=== PATIENT | female | born 1985 | race Caucasian/White ===

== ENCOUNTER 2017-08-17 07:48 | Emergency (ER) | payer OTHER ==
[~2017-08-17] VITALS: Ht 165.1 cm; Wt 77.0 kg
[~2017-08-17 07:48] MED LIST: CAMILA0.35 MG PO; FERGON324 MG PO; IBUPROFEN800 MG PO; PRENATAL TABLE1 EAC3 PO; PROAIR HFA8.5 GM IH; PROMETHAZINE12.5 M1 PO
[2017-08-17 08:30] LABS: HEMOGLOBIN 13.5 G/DL (11.9-15.5); MCH 33.5 PG (29.0-34.0); MCHC 35.5 G/DL (30.0-36.0); MCV 94.3 FL (83-99); PLATELET COUNT 256 K/uL (156-360); RBC DIS.WIDTH-CV 12.7 % (11.8-14.6); RBC DIS.WIDTH-SD 43.5 % (39-53); RED BLOOD COUNT 4.03 M/uL (3.80-5.20); WHITE BLOOD COUNT 9.7 K/uL (4.1-10.2)
[2017-08-17 08:38] LABS: CHLORIDE 103 mEq/L (99-109); POTASSIUM 3.9 mEq/L (3.7-5.4); SODIUM 138 mEq/L (136-147)
[2017-08-17 08:40] LABS: GLUCOSE 103 mg/dL (70-99)
[2017-08-17 08:43] LABS: CREATININE 0.7 mg/dL (0.6-1.3); GFR ESTIMATE (CALCULATED) > 59 mL/min/
[2017-08-17 08:44] LABS: UREA NITROGEN (BUN) 13 mg/dL (9-23)
[2017-08-17 08:50] LABS: APPEARANCE CLOUDY ((CLEAR)); BILIRUBIN NEGATIVE; BLOOD SMALL; COLOR YELLOW ((YELLOW)); GLUCOSE (STRIP) NEGATIVE; KETONES NEGATIVE; LEUKOCYTES LARGE; NITRITE NEGATIVE; PROTEIN (STRIP) 30; SPECIFIC GRAVITY 1.021 (1.000-1.030); UROBILINOGEN 0.2 MG/DL (0.2-1.0)
[2017-08-17 09:07] LABS: BACTERIA 2+ /HPF; EPITHELIAL CELLS 1+ /HPF; MUCUS RARE /LPF; UCUL ADDED? YES; WHITE BLOOD CELLS TNTC /HPF (0-5); WHITE CELL CASTS 0-5 /LPF
[2017-08-17 09:08] LABS: AMORPHOUS URATES CRYSTALS 1+
[2017-08-17] MEDS ORDERED: KEFLEX500 MG PO (10:00)
[2017-08-17 10:25] VITALS: BP 108/72
== END 2017-08-17 10:26 | disposition home or self-care (01) ==
LOC: EME 07:48
PROVIDERS: Nurse Practitioner Family
DX: N39.0 Urinary tract infection, site not specified (principal); F31.9 Bipolar disorder, unspecified; F17.200 Nicotine dependence, unspecified, uncomplicated
CPT/HCPCS: 80048; 81003; 85027; 87077; 87086; 87186; 99281; 99284; J1885

== ENCOUNTER 2017-08-19 13:14 | Emergency (ER) | payer OTHER ==
[~2017-08-19] VITALS: Ht 165.1 cm; Wt 77.3 kg
[~2017-08-19 13:14] MED LIST changes: +KEFLEX500 MG PO
[2017-08-19 14:14] LABS: BASOPHIL (%) 0.3 % (0-1); BASOPHIL COUNT 0.1 K/uL (0-0.1); EOSINOPHIL (%) 0.1 % (0-5); HEMATOCRIT 39.2 % (36.0-46.0); HEMOGLOBIN 13.9 G/DL (11.9-15.5); IMMATURE GRANULOCYTE (%) 0.5 % (0.0-0.7); LYMPHOCYTE (%) 7.8 % (15-42); LYMPHOCYTE COUNT 1.4 K/uL (1.0-2.8); MCHC 35.5 G/DL (30.0-36.0); MCV 93.1 FL (83-99); MONOCYTE (%) 9.1 % (3-12); MONOCYTE COUNT 1.7 K/uL (0-0.8); NEUTROPHIL (%) 82.2 % (45-76); NEUTROPHIL COUNT 15.2 K/uL (1.8-6.4); PLATELET COUNT 250 K/uL (156-360); RBC DIS.WIDTH-CV 12.7 % (11.8-14.6); RBC DIS.WIDTH-SD 43.2 % (39-53); RED BLOOD COUNT 4.21 M/uL (3.80-5.20); WHITE BLOOD COUNT 18.5 K/uL (4.1-10.2)
[2017-08-19 14:26] LABS: CHLORIDE 97 mEq/L (99-109); POTASSIUM 3.7 mEq/L (3.7-5.4); SODIUM 132 mEq/L (136-147)
[2017-08-19 14:27] LABS: GLUCOSE 117 mg/dL (70-99)
[2017-08-19 14:31] LABS: CREATININE 0.8 mg/dL (0.6-1.3); GFR ESTIMATE (CALCULATED) > 59 mL/min/
[2017-08-19 14:32] LABS: UREA NITROGEN (BUN) 9 mg/dL (9-23)
[2017-08-19 15:17] LABS: QUANTITATIVE HCG < 4.0 MIU/ML
[2017-08-19 15:32] LABS: APPEARANCE SL.HAZY ((CLEAR)); BILIRUBIN NEGATIVE; BLOOD SMALL; COLOR YELLOW ((YELLOW)); GLUCOSE (STRIP) 50; KETONES 5; LEUKOCYTES LARGE; NITRITE NEGATIVE; PROTEIN (STRIP) 100; SPECIFIC GRAVITY 1.013 (1.000-1.030)
[2017-08-19 16:07] LABS: RED BLOOD CELLS RARE /HPF (0-5)
[2017-08-19 16:09] LABS: BACTERIA 1+ /HPF; EPITHELIAL CELLS 1+ /HPF; MUCUS NONE SEEN /LPF; UCUL ADDED? YES; WHITE BLOOD CELLS TNTC /HPF (0-5)
[2017-08-19] MEDS ORDERED: CIPRO500 MG PO (16:52)
[2017-08-19 17:32] VITALS: BP 122/79
[2017-08-20] MEDS ORDERED: ADVIL,NUPRIN,M200 MG PO (02:06)
[2017-08-20] MEDS ORDERED: LAMICTAL25 MG PO (02:07)
[2017-08-20] MEDS ORDERED: ADDERALL10 MG PO (02:07)
[2017-08-20] MEDS ORDERED: ADDERALL XR 2525 MG PO (02:08)
[2017-08-20] MEDS ORDERED: FLUOXETINE HCL10 MG PO (02:08)
[2017-08-20] MEDS ORDERED: FLUOXETINE HCL20 MG PO (02:08)
== END 2017-08-19 17:49 | disposition home or self-care (01) ==
LOC: EME 13:14
DX: N12 Tubulo-interstitial nephritis, not specified as acute or chronic (principal); N13.2 Hydronephrosis with renal and ureteral calculous obstruction; Z87.440 Personal history of urinary (tract) infections; F17.200 Nicotine dependence, unspecified, uncomplicated
CPT/HCPCS: 74176; 80048; 81003; 83605; 84702; 85025; 87077; 87086; 87186; 99281; 99285; J0696; J1885; J7030

== ENCOUNTER 2017-08-19 22:56 | Inpatient (IN) | payer OTHER ==
[~2017-08-19] VITALS: Ht 165.1 cm; Wt 78.0 kg
[~2017-08-19 22:56] MED LIST changes: +CIPRO500 MG PO
[2017-08-19 23:16] LABS: HEMATOCRIT 37.1 % (36.0-46.0); HEMOGLOBIN 12.8 G/DL (11.9-15.5); MCH 33.1 PG (29.0-34.0); MCHC 34.5 G/DL (30.0-36.0); MCV 95.9 FL (83-99); PLATELET COUNT 220 K/uL (156-360); RBC DIS.WIDTH-CV 12.6 % (11.8-14.6); RBC DIS.WIDTH-SD 44.7 % (39-53); RED BLOOD COUNT 3.87 M/uL (3.80-5.20); WHITE BLOOD COUNT 14.3 K/uL (4.1-10.2)
[2017-08-19 23:25] LABS: CHLORIDE 101 mEq/L (99-109); POTASSIUM 3.6 mEq/L (3.7-5.4); SODIUM 134 mEq/L (136-147)
[2017-08-19 23:27] LABS: GLUCOSE 126 mg/dL (70-99)
[2017-08-19 23:31] LABS: CREATININE 0.8 mg/dL (0.6-1.3); GFR ESTIMATE (CALCULATED) > 59 mL/min/
[2017-08-19 23:32] LABS: UREA NITROGEN (BUN) 13 mg/dL (9-23)
[2017-08-20] MEDS ORDERED: ADVIL,NUPRIN,M200 MG PO (02:06)
[2017-08-20] MEDS ORDERED: LAMICTAL25 MG PO (02:07)
[2017-08-20] MEDS ORDERED: ADDERALL10 MG PO (02:07)
[2017-08-20] MEDS ORDERED: FLUOXETINE HCL20 MG PO (02:08)
[2017-08-20] MEDS ORDERED: ADDERALL XR 2525 MG PO (02:08)
[2017-08-20] MEDS ORDERED: FLUOXETINE HCL10 MG PO (02:08)
[2017-08-20 04:11] VITALS: BP 110/66
[2017-08-20 07:02] LABS: BASOPHIL (%) 0.3 % (0-1); EOSINOPHIL (%) 0.4 % (0-5); EOSINOPHIL COUNT 0.1 K/uL (0-0.3); HEMATOCRIT 33.2 % (36.0-46.0); HEMOGLOBIN 11.1 G/DL (11.9-15.5); IMMATURE GRANULOCYTE (%) 0.5 % (0.0-0.7); LYMPHOCYTE (%) 14.8 % (15-42); LYMPHOCYTE COUNT 1.7 K/uL (1.0-2.8); MCH 32.1 PG (29.0-34.0); MCHC 33.4 G/DL (30.0-36.0); MONOCYTE (%) 8.8 % (3-12); NEUTROPHIL (%) 75.2 % (45-76); NEUTROPHIL COUNT 8.5 K/uL (1.8-6.4); PLATELET COUNT 213 K/uL (156-360); RBC DIS.WIDTH-CV 12.7 % (11.8-14.6); RBC DIS.WIDTH-SD 44.7 % (39-53); RED BLOOD COUNT 3.46 M/uL (3.80-5.20); WHITE BLOOD COUNT 11.4 K/uL (4.1-10.2)
[2017-08-20 07:24] VITALS: BP 91/56
[2017-08-20 07:29] LABS: CHLORIDE 107 MEQ/L (99-109); CREATININE 0.7 MG/DL (0.6-1.3); GFR ESTIMATE (CALCULATED) > 59 mL/min/; GLUCOSE 98 mg/dL (70-99); POTASSIUM 3.7 MEQ/L (3.7-5.4); SODIUM 139 MEQ/L (136-147); UREA NITROGEN (BUN) 10 mg/dL (9-23)
[2017-08-20 10:53] VITALS: BP 129/75
[2017-08-20 16:50] VITALS: BP 133/80
[2017-08-20 19:29] VITALS: BP 112/72
[2017-08-20 23:51] VITALS: BP 120/79
[2017-08-21 03:12] VITALS: BP 113/71
[2017-08-21 07:45] VITALS: BP 110/67
[2017-08-21 15:52] VITALS: BP 126/74
[2017-08-21 20:04] VITALS: BP 140/86
[2017-08-22 00:22] VITALS: BP 144/60
[2017-08-22 03:50] VITALS: BP 111/56
[2017-08-22 07:47] VITALS: BP 129/83
[2017-08-22] MEDS ORDERED: PHENAZOPYRIDIN100 MG PO (09:59)
[2017-08-22] MEDS ORDERED: CIPRO500 MG PO (09:59)
[2017-08-22] MEDS ORDERED: TORADOL10 MG PO (10:00)
== END 2017-08-22 11:00 | disposition home or self-care (01) | DRG 872 ==
LOC: EME 22:56 → 2EAST 08-20 02:39 → ENRESERV 08-20 02:39 → EDOF 08-20 02:39 → ENRESERV 08-20 03:01 → 2EAST 08-20 03:32
PROVIDERS: Hospitalist; Physician Assistant
PROC: 0T768DZ Dilation of Right Ureter with Intraluminal Device, Via Natural or Artificial Opening Endoscopic (ICD-10-PCS; principal; 2017-08-20)
DX: A41.59 Other Gram-negative sepsis (principal); N13.6 Pyonephrosis; N30.00 Acute cystitis without hematuria; F31.9 Bipolar disorder, unspecified; F17.200 Nicotine dependence, unspecified, uncomplicated
CPT/HCPCS: 74176; 80048; 80048 91; 81003; 83605; 84702; 85025; 85027; 87040; 87077; 87086; 87186; 99281; 99284; 99285; C2625; J0696; J1100; J1170; J1650; J1885; J2250; J2405; J3010; J7030

== ENCOUNTER 2017-09-17 06:04 | Emergency (ER) | payer OTHER ==
[~2017-09-17] VITALS: Ht 165.1 cm; Wt 78.2 kg
[~2017-09-17 06:04] MED LIST changes: +ADDERALL XR 2525 MG PO; +ADDERALL10 MG PO; +ADVIL,NUPRIN,M200 MG PO; +FLUOXETINE HCL10 MG PO; +FLUOXETINE HCL20 MG PO; +LAMICTAL25 MG PO; +PHENAZOPYRIDIN100 MG PO; +TORADOL10 MG PO
[2017-09-17] MEDS ORDERED: AUGMENTIN875 MG PO (06:30)
[2017-09-17] MEDS ORDERED: PREDNISONE20 MG PO (06:30)
[2017-09-17 06:44] VITALS: BP 150/92
== END 2017-09-17 06:47 | disposition home or self-care (01) ==
LOC: EME 06:04
DX: J32.9 Chronic sinusitis, unspecified (principal); J45.909 Unspecified asthma, uncomplicated; F41.9 Anxiety disorder, unspecified; F17.200 Nicotine dependence, unspecified, uncomplicated; Z87.440 Personal history of urinary (tract) infections
CPT/HCPCS: 99281; 99284; J7512